=== PATIENT | female | born 1995 | race American Indian/Alaskan Native ===

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

== ENCOUNTER 2017-02-26 19:48 | Emergency (ER) | payer BC, OTHER ==
[~2017-02-26 19:48] MED LIST changes: +Bupivacaine 0.5% 50 ML MDV INFILT ONE; -Lactated Ringers 1,000 ML IV SCH
[2017-02-26] MEDS ORDERED: Sodium Chloride 0.9% 1,000 ML IV ONE (20:02)
[2017-02-26] MEDS ORDERED: Lidocaine/EPINEPHrine/Tetracaine Soln 5 ML Each TOP ONE (20:47)
--- NOTE | 2017-02-26 21:48 | EDM.PDOC ---
ED HPI GENERAL MEDICAL PROBLEM - General Chief Complaint: Head Injury Stated Complaint: HEAD INJURY Time Seen by Provider: 02/26/17 20:00 Source of Information: Reports: Patient, Family History Limitations: Reports: Uncooperative - History of Present Illness INITIAL COMMENTS - FREE TEXT/NARRATIVE: 21 y.o.w.caitlyn came to the ed because she is confused to time and situation. She was found by her boyfriend with a head lac. abrasions at her extremities and had occ out bursting, uncooperative behaviours, refusing PE and Tx, pt was more cooperative as the parents arrived. . BP 118/87 pulse 103 Onset: Today Onset Date: 02/26/17 Onset Time: 17:00 Duration: Hour(s): Location: Reports: Head, Upper Extremity, Right, Lower Extremity, Left, Lower Extremity, Right Quality: Reports: Ache, Dull Severity: Moderate Improves with: Reports: Immobilization Worsens with: Reports: Movement Associated Symptoms: Reports: No Other Symptoms head Pain Score (Numeric/FACES): 7 - Related Data Allergies Allergy/AdvReac Type Severity Reaction Status Date / Time No Known Allergies Allergy Verified 02/26/17 20:14 Home Meds: Home Meds Cephalexin [Keflex] 500 mg PO Q6HR #40 cap 02/26/17 [Rx] Past Medical History Cardiovascular History: Reports: None Respiratory History: Reports: None Other Respiratory History: ENVIRONMENTAL ALLERGIES Gastrointestinal History: Reports: GERD Genitourinary History: Reports: None 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: Dysfunctional 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 Musculoskeletal History: Reports: Back Pain, Chronic Neurological History: Reports: Concussion Hematologic History: Reports: None Immunologic History: Reports: None Oncologic (Cancer) History: Reports: None - Infectious Disease History Infectious Disease History: Reports: Chicken Pox - Past Surgical History Head Surgeries/Procedures: Reports: None HEENT Surgical History: Reports: Oral Surgery GI Surgical History: Reports: None Female Surgical History: Reports: D&C Social & Family History - Family History Family Medical History: Noncontributory - Tobacco Use Smoking Status *Q: Current Every Day Smoker Years of Tobacco use: 1 Packs/Tins Daily: 1 - Caffeine Use Caffeine Use: Reports: Coffee, Soda - Alcohol Use Number of Drinks Per Day: 0 - Recreational Drug Use Recreational Drug Use: No Drug Use in Last 12 Months: Yes Recreational Drug Type: Reports: Marijuana/Hashish Recreational Drug Use Frequency: Socially ED ROS GENERAL - Review of Systems Review Of Systems: Unable To Obtain (uncooperative) ED EXAM, HEAD INJURY - Physical Exam Exam: See Below Exam Limited By: Uncooperative General Appearance: Alert, WD/WN, Anxious, Mild Distress Head: Scalp Hematoma, Scalp Tenderness, Other (scalp hematome) Eyes: Bilateral Eye: Normal Inspection Ears: Normal External Exam Nose: Normal Inspection, Normal Mucousa Throat/Mouth: Normal Inspection, Normal Lips, Normal Teeth, Normal Gums Neck: Non-Tender, Full Range of Motion, Normal Alignment, Normal Inspection Respiratory: No Respiratory Distress, Lungs Clear, Normal Breath Sounds Cardiovascular: Normal Peripheral Pulses, Regular Rate, Rhythm, No Edema, No Gallop GI/Abdominal Exam: Normal Bowel Sounds, Soft, Non-Tender, No Organomegaly, No Distention (Female) Exam: Deferred Rectal (Female) Exam: Deferred Back Exam: Normal Inspection, Full Range of Motion, CVA Tenderness (R) Extremities: Normal Inspection, Normal Range of Motion, Non-Tender Neurologic: lamp replacer II-XII nml As Tested, No Motor/Sensory Deficits, Alert Skin: Rash (head, r and left extremities abrasions), Other (wound r occiput, abrasions) - Nicolasa Coma Score Best Eye Response (Nicolasa): (4) Open Spontaneously Best Verbal Response (Nicolasa): (5) Oriented Best Motor Response (Nicolasa): (6) Obeys Commands Nicolasa Total: 15 ED LACERATION/WOUND & YOANDY PROC - Laceration/Wound Repair Right Head Lac/wound length in cm: 5 (very complex) Appearance: Superficial, Subcutaneous, Stellate (very complex LAC, may need revision in one week.), Irregular, Mildly Contaminated Distal NVT: Neuro & Vascular Intact, No Tendon Injury Anesthetic Type: Local Local Anesthesia - Bupivicaine (Marcaine): 0.5% Plain Local Anesthetic Volume: 4cc Skin Prep: Providone-Iodine (Betadine) Saline irrigation (cc's): 7 Exploration/Debridement/Repair: Wound Explored, In a Bloodless Field, Explored to Base Closed with: [place] # of Sutures: 7 Tetanus Status Addressed: Yes Complications: No Course - Vital Signs Text/Narrative:: 21 y.o.w.f came to the ed because she is confused to time and situation. She was found by her boyfriend with a head lac. abrasions at her extremities and had occ out vebal "bursting", uncooperative behaviours, refusing PE and Tx. Pt was more cooperative as the parents arrived. TD: Pt/Parents will find out in next 72 hours. PE: Stellate lac right occiput, no bleed, bone structure beneath wound is intact. Abrasions r elbow r fool left knee. Procedure note, please see note above. imaging: CT head/neck: NAD Impression: Stellate lac right occiput, Abrasions r elbow, r fool left knee. concussion. TxL Wound repair, Abx, Reexam: Improved, pt was ambulating fine. Plan: D/C with instructions Last Recorded V/S: Last Vital Signs Temp 36.8 C 02/26/17 21:55 Pulse 95 02/26/17 21:55 Resp 17 02/26/17 21:55 BP 115/68 02/26/17 21:55 Pulse Ox 99 02/26/17 21:55 - Orders/Labs/Meds Orders: Active Orders 24 hr Category Date Time Status Head wo Cont [CT] Stat Exams 02/26/17 20:02 Taken Labs: Laboratory Tests 02/26/17 02/26/17 02/26/17 Range/Units 20:15 20:15 20:15 WBC 13.8 H (4.5-12.0) X10-3/uL RBC 4.52 (3.23-5.20) x10(6)uL Hgb 14.1 (11.5-15.5) g/dL Hct 41.4 (30.0-51.3) % MCV 91.6 (80-96) fL MCH 31.2 (27.7-33.6) pg MCHC 34.1 (32.2-35.4) g/dL RDW 13.5 (11.5-15.5) % Plt Count 246 (125-369) X10(3)uL MPV 9.1 (7.4-10.4) fL Neut % (Auto) 73.6 (46-82) % Lymph % (Auto) 18.8 (13-37) % [place] % (Auto) 6.0 (4-12) % Eos % (Auto) 1 (1.0-5.0) % Baso % (Auto) 0 (0-2) % Neut # (Auto) 10.1 H (1.6-8.3) # Lymph # (Auto) 2.6 (0.6-5.0) # Henderson # (Auto) 0.8 (0.0-1.3) # Eos # (Auto) 0.2 (0.0-0.8) # Baso # (Auto) 0.1 (0.0-0.2) # Sodium 138 (135-145) mmol/L Potassium 3.8 (3.5-5.3) mmol/L Chloride 107 (100-110) mmol/L Carbon Dioxide 22 L (23-29) mmol/L BUN 16 (5-20) mg/dL Creatinine 0.8 (0.5-1.0) mg/dL Est Cr Clr Drug Dosing TNP Estimated GFR (MDRD) > 60 (>60) BUN/Creatinine Ratio 20.0 (9-20) Glucose 109 (80-116) mg/dL Calcium 9.2 (8.2-10.1) mg/dL Urine HCG, Qual (NEGATIVE) Urine Opiates Screen (NEGATIVE) Ur Oxycodone Screen (NEGATIVE) Ur Propoxyphene Screen (NEGATIVE) Ur Barbituates Screen (NEGATIVE) Ur Tricyclics Screen (NEGATIVE) Ur Phencyclidine Scrn (NEGATIVE) Ur Amphetamine Screen (NEGATIVE) Urine MDMA Screen (NEGATIVE) U Benzodiazepines Scrn (NEGATIVE) U Cocaine Metab Screen (NEGATIVE) U Marijuana (THC) Screen (NEGATIVE) Ethyl Alcohol < 0.01 (<0.01) % 02/26/17 02/26/17 Range/Units 20:16 20:16 WBC (4.5-12.0) X10-3/uL RBC (3.23-5.20) x10(6)uL Hgb (11.5-15.5) g/dL Hct (30.0-51.3) % MCV (80-96) fL MCH (27.7-33.6) pg MCHC (32.2-35.4) g/dL RDW (11.5-15.5) % Plt Count (125-369) X10(3)uL MPV (7.4-10.4) fL Neut % (Auto) (46-82) % Lymph % (Auto) (13-37) % Henderson % (Auto) (4-12) % Eos % (Auto) (1.0-5.0) % Baso % (Auto) (0-2) % Neut # (Auto) (1.6-8.3) # Lymph # (Auto) (0.6-5.0) # Henderson # (Auto) (0.0-1.3) # Eos # (Auto) (0.0-0.8) # Baso # (Auto) (0.0-0.2) # Sodium (135-145) mmol/L Potassium (3.5-5.3) mmol/L Chloride (100-110) mmol/L Carbon Dioxide (23-29) mmol/L BUN (5-20) mg/dL Creatinine (0.5-1.0) mg/dL Est Cr Clr Drug Dosing Estimated GFR (MDRD) (>60) BUN/Creatinine Ratio (9-20) Glucose (80-116) mg/dL Calcium (8.2-10.1) mg/dL Urine HCG, Qual Negative (NEGATIVE) Urine Opiates Screen Negative (NEGATIVE) Ur Oxycodone Screen Negative (NEGATIVE) Ur Propoxyphene Screen Negative (NEGATIVE) Ur Barbituates Screen Negative (NEGATIVE) Ur Tricyclics Screen Negative (NEGATIVE) Ur Phencyclidine Scrn Negative (NEGATIVE) Ur Amphetamine Screen Negative (NEGATIVE) Urine MDMA Screen Negative (NEGATIVE) U Benzodiazepines Scrn Negative (NEGATIVE) U Cocaine Metab Screen Negative (NEGATIVE) U Marijuana (THC) Screen Negative (NEGATIVE) Ethyl Alcohol (<0.01) % Meds: Medications Discontinued Medications Generic Name Dose Route Start Last Admin Trade Name Eduardo PRN Reason Stop Dose Admin Cephalexin 500 mg 02/26/17 21:49 02/26/17 21:50 Keflex PO 02/26/17 21:50 500 mg ONETIME ONE Administration Sodium Chloride 1,000 mls @ 999 mls/hr 02/26/17 20:02 02/26/17 22:07 Normal Saline IV 02/26/17 21:02 Not Given .BOLUS ONE Lidocaine/Tetracaine 5 ml 02/26/17 20:47 02/26/17 21:06 Let Soln TOP 02/26/17 20:48 5 ml ONETIME ONE Administration Departure - Departure Time of Disposition: 21:42 Disposition: Home, Self-Care 01 Condition: Good Clinical Impression: Abrasion Laceration of head Qualifiers: Encounter type: initial encounter Location of open wound of head: scalp Foreign body presence: without foreign body Qualified Code(s): S01.01XA - Laceration without foreign body of scalp, initial encounter - Discharge Information Prescriptions: Cephalexin [Keflex] 500 mg PO Q6HR #40 cap Instructions: Concussion, Adult, [id number], Head Injury, Adult, Stitches, Jose, or Adhesive Wound Closure Referrals: Jeanette Rodriguez NP [Primary Care Provider] - Forms: ED Department Discharge Additional Instructions: Please clean the abrasions at your extremities with soap and water, take keflex as recommended, please apply neosporine to wound twice daily. However, apply pressure to head laceration wound for 24 hours and to not touch it, wash it for 4 days. wound check in 2-3 days. Stable removal in 7-10 days. Please come back to the ed if the symptoms get worse acutely. - My Orders Last 24 Hours: My Active Orders 02/26/17 20:02 Head wo Cont [CT] Stat - Assessment/Plan Last 24 Hours: My Active Orders 02/26/17 20:02 Head wo Cont [CT] Stat
[2017-02-26] MEDS ORDERED: Cephalexin 500 MG Cap PO ONE (21:49)
[2017-02-26 22:06] VITALS: BP 115/68
== END 2017-02-26 22:00 | disposition home or self-care (01) ==
LOC: FB.ED 19:48
DX: S01.01XA Laceration without foreign body of scalp, initial encounter (principal); S80.811A Abrasion, right lower leg, initial encounter; S80.812A Abrasion, left lower leg, initial encounter; K21.9 Gastro-esophageal reflux disease without esophagitis; F17.210 Nicotine dependence, cigarettes, uncomplicated; X58.XXXA Exposure to other specified factors, initial encounter
CPT/HCPCS: 12002; 36415; 70450; 80048; 80305; 81025; 85025; 99283; A4217; A9270; G0480

== ENCOUNTER 2017-04-04 22:59 | Emergency (ER) | payer MEDICAID, OTHER ==
[2017-04-04] MEDS ORDERED: Lidocaine 1% 20 ML MDV INFILT ONE (23:00)
[2017-04-05 00:04] VITALS: BP 113/68
[2017-04-05] MEDS ORDERED: Diphtheria,Pertussis(Acell),Tetanus Vaccine 0.5 ML SDV IM ONE (00:23)
[2017-04-05] MEDS ORDERED: Cephalexin 500 MG Cap PO ONE (00:27)
--- NOTE | 2017-04-09 09:49 | ER ---
DATE SEEN: 04/04/2017 TIME SEEN: The patient was seen at 2311 hours. HISTORY OF PRESENT ILLNESS: This 21-year-old was at home, attempting to unpack a safe and the safe was taken out of the box, but she attempted to remove the keys and break the plastic arshad ring and cut this from the safe and she noted that her right hand was up too far and caught her left upper third of her anterior left tibia. The patient denies any loss of sensation or previous injury. PAST MEDICAL HISTORY: Diabetes. No other serious illnesses. MEDICATIONS: None. REVIEW OF SYSTEMS: Negative. PHYSICAL EXAMINATION: VITAL SIGNS: Blood pressure 113/68, heart rate 74, respirations 16, oxygen saturation 96%, temperature 36.6 degrees centigrade. BMI 30.6 kg/m2. Below the patella, which is approximately 15 cm below this, the patient has a 3- cm laceration. Wound was cleansed. Injected with lidocaine and then probed, this has approximately 3 cm depth. Wound was then flushed with a liter of normal saline and closed with interrupted two-layer closure with 4-0 Vicryl inverted stitch and also three stitches interrupted 3-0 Ethilon. The patient tolerated the procedure well. PLAN: Dismissed. Use of 1000 mg of Tylenol and 40 mg Toradol together q.6 hours p.r.n. pain. Sutures to stay in for 2 weeks. Use bacitracin. May shower, not to go swimming. Keflex 500 mg t.i.d. 30 tablets. The patient received tetanus Tdap also. /[id number] [place]/LEO
== END 2017-04-05 00:43 | disposition home or self-care (01) ==
LOC: FB.ED 22:59
DX: S81.812A Laceration without foreign body, left lower leg, initial encounter (principal); Z23 Encounter for immunization; W45.8XXA Other foreign body or object entering through skin, initial encounter
CPT/HCPCS: 12002; 90471; 90715; 99283; A9270

== ENCOUNTER 2020-12-23 19:00 | Emergency (ER) | payer SELFPAY ==
[2020-12-23] MEDS ORDERED: Lidocaine 2% 20 ML MDV INFILT ONE (19:01)
--- NOTE | 2020-12-23 19:36 | EDM.PDOC ---
ED HPI GENERAL MEDICAL PROBLEM - General Stated Complaint: LEFT FOOT/TOE LACERATION Time Seen by Provider: 12/23/20 19:32 Source of Information: Reports: Patient History Limitations: Reports: No Limitations - History of Present Illness INITIAL COMMENTS - FREE TEXT/NARRATIVE: Hurt the left foot,while tubing. Sustained a 2 cm ;lac to the left pinky toe. 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 Musculoskeletal History: Reports: Back Pain, Chronic Neurological History: Reports: Concussion Hematologic History: Reports: None Immunologic History: Reports: None Oncologic (Cancer) History: Reports: None - Infectious Disease History Infectious Disease History: Reports: Chicken Pox - Past Surgical History Head Surgeries/Procedures: Reports: None HEENT Surgical History: Reports: Oral Surgery GI Surgical History: Reports: None Female Surgical History: Reports: D&C Social & Family History - Family History Family Medical History: No Pertinent Family History - Caffeine Use Caffeine Use: Reports: Coffee, Soda Review of Systems - Review of Systems Review Of Systems: Comprehensive ROS is negative, except as noted in HPI. ED EXAM, GENERAL - Physical Exam Exam: See Below Free Text/Narrative:: 2 CM laceration in the plantar aspect of the left pinky. Exam Limited By: No Limitations General Appearance: Alert ED TRAUMA EXTREMITY PROCEDURES - Laceration/Wound Repair Left Digit - 5th (Baby) Lac/Wound Length In cm: 2 Distal NVT: Neuro & Vascular Intact, No Tendon Injury Anesthetic Type: Local Local Anesthesia - Lidocaine (Xylocaine): 2% Plain Local Anesthetic Volume: 3cc Skin Prep: Chlorhexidine (Hibiciens) Exploration/Debridement/Repair: Minimally Undermined Closed With: Sutures Suture Size: 3-0 Suture Type: Nylon Tetanus Status Addressed: Yes Complications: No Departure - Departure Time of Disposition: 19:35 Disposition: Home, Self-Care 01 Condition: Good Clinical Impression: Laceration - Discharge Information - Problem List & Annotations (1) Laceration SNOMED Code(s): 062867754 Code(s): JNT5947 - Status: Acute - Problem List Review Problem List Initiated/Reviewed/Updated: Yes - Assessment/Plan Plan: Tetanus given. Remove sutures in 10 days
[2020-12-23 19:42] VITALS: BP 122/79; PULSE 108
== END 2020-12-23 19:58 | disposition home or self-care (01) ==
LOC: FB.ED 19:00
DX: S91.115A Laceration without foreign body of left lesser toe(s) without damage to nail, initial encounter (principal); W26.8XXA Contact with other sharp object(s), not elsewhere classified, initial encounter
CPT/HCPCS: 12001; 12002; 99282; 99282-25

== ENCOUNTER 2025-05-19 02:20 | Emergency (ER) | payer BC, OTHER ==
[2025-05-19 04:15] VITALS: BP 101/59; PULSE 74
== END 2025-05-19 04:12 | disposition home or self-care (01) ==
LOC: FB.ED 02:20
DX: S93.402A Sprain of unspecified ligament of left ankle, initial encounter (principal); Z79.899 Other long term (current) drug therapy; W18.39XA Other fall on same level, initial encounter; Y93.89 Activity, other specified
CPT/HCPCS: 36415; 73610; 73700; 80320; 99000; 99284; A9270; G0480